=== PATIENT | male | born 1985 | race African-American/Black ===

== ENCOUNTER 2018-12-27 16:50 | Emergency (ER) | payer MEDICAID, OTHER ==
[~2018-12-27] VITALS: Ht 170.2 cm; Wt 79.4 kg
[2018-12-27 17:41] VITALS: BP 138/76
--- NOTE | 2018-12-27 17:43 | NUR ---
ED Nurse Note: pt walked in due to abd pain and n/v since yest am. pt unable to determne how mny time he vomited. pt is complaining of 6/1o pain on tthe epigastric area. will continue to monitor.
[2018-12-27] MEDS ORDERED: Metoclopramide 10mg/2ml Inj IVP ONE (18:00)
[2018-12-27 18:20] LABS: APPEARANCE,URINE CLEAR; BILIRUBIN, URINE NEGATIVE (NEGATIVE); GLUCOSE, URINE (UA) NEGATIVE (NEGATIVE); KETONES,URINE 4+ (NEGATIVE); LEUKOCYTE ESTERASE ,URINE 1+ (NEGATIVE); NITRITE,URINE NEGATIVE (NEGATIVE); PH,URINE 6 (4.5-8.0); PROTEIN,URINE 2+ (NEGATIVE); UROBILINOGEN,URINE NORMAL MG/DL (0.0-1.0)
[2018-12-27 18:22] LABS: BASOPHILS % (AUTO) 1.2 % (0.0-2.0); EOSINOPHILS % (AUTO) 0.1 % (0.0-3.0); HEMATOCRIT 47.1 % (42.0-52.0); HEMOGLOBIN 15.5 G/DL (14.2-18.0); LYMPHOCYTES % (AUTO) 8.5 % (20.0-45.0); MEAN CORPUSCULAR VOLUME 85 FL (80-99); MONOCYTES % (AUTO) 6.1 % (1.0-10.0); NEUTROPHILS % (AUTO) 84.2 % (45.0-75.0); PLATELET COUNT 267 K/UL (150-450); RED BLOOD COUNT 5.57 M/UL (4.70-6.10); RED CELL DISTRIBUTION WIDTH 12.3 % (11.6-14.8); WHITE BLOOD COUNT 15.2 K/UL (4.8-10.8)
[2018-12-27 18:27] LABS: COLOR,URINE YELLOW
[2018-12-27 18:29] LABS: INR 1.1 (0.9-1.1)
[2018-12-27 18:30] LABS: ANION GAP 13 mmol/L (5-15); BLOOD UREA NITROGEN 12 mg/dL (7-18); CARBON DIOXIDE 23 MMOL/L (21-32); CHLORIDE 103 MMOL/L (98-107); CREATININE 1.4 MG/DL (0.55-1.30); POTASSIUM 3.3 MMOL/L (3.5-5.1); SODIUM 139 MMOL/L (136-145)
[2018-12-27] MEDS ORDERED: Isovue-300 100ml vial INJ PRN (18:30)
[2018-12-27 18:40] LABS: ALANINE AMINOTRANSFERASE 28 U/L (12-78); ALBUMIN 4.3 G/DL (3.4-5.0); ALBUMIN/GLOBULIN RATIO 1.2 (1.0-2.7); ALKALINE PHOSPHATASE 65 U/L (46-116); ASPARTATE AMINO TRANSFERASE 14 U/L (15-37); BILIRUBIN,TOTAL 1.1 MG/DL (0.2-1.0)
[2018-12-27 18:45] LABS: BILIRUBIN,DIRECT 0.2 MG/DL (0.0-0.3)
--- NOTE | 2018-12-27 19:00 | NUR ---
ED Nurse Note: pt went to the ct with tech
--- NOTE | 2018-12-27 19:07 | NUR ---
HAND-OFF: Report given to fco tomlin.
--- NOTE | 2018-12-27 19:08 | NUR ---
ED Nurse Note: Received report from Ghazala/RN. Pt is a/o x 4. Pt was sent down to CT, will continue to monitor.
[2018-12-27] MEDS ORDERED: REGLAN10 MG ORAL (19:25)
[2018-12-27] MEDS ORDERED: FAMOTIDINE20 MG ORAL (19:25)
[2018-12-27] MEDS ORDERED: TYLENOL EXTRA500 MG ORAL (19:25)
[2018-12-27 19:40] VITALS: BP 134/72
--- NOTE | 2018-12-27 19:40 | NUR ---
ER DISCHARGE NOTE: Patient is cleared to be discharged per Cristina Rivas/NEEL. CT of abdominal done. Pt is A/O x4 on room air with stable vital signs. Pt was given D/C instructions and was able to verbalize understanding. Pt's ID band removed. Pt is able to ambulate with steady gait and took all belongings.
--- NOTE | 2018-12-27 21:05 | Emergency Room Report ---
History of Present Illness General Chief Complaint: Abdominal Pain Source: Patient Present Illness HPI The patient is a 33-year-old male presenting for abdominal pain. He states that this began one day prior. Pain is described as an 8 out of 10 dull ache primarily to the mid upper abdomen. Does not radiate. He does admit to nausea and loose stools. He also admits to chills but denies fever. He denies other symptoms including rash, SOB, CP, fatigue, hematemesis, melena, hematochezia Allergies: Coded Allergies: No Known Allergies (Unverified , 12/27/18) Patient History Past Medical History: see triage record Pertinent Family History: none Reviewed Nursing Documentation: PMH: Agreed; PSxH: Agreed Nursing Documentation-PMH Past Medical History: No Stated History Review of Systems All Other Systems: negative except mentioned in HPI Physical Exam Vital Signs Date Time Temp Pulse Resp B/P (MAP) Pulse Ox O2 Delivery O2 Flow Rate FiO2 12/27/18 16:56 98.4 83 20 138/76 99 Room Air Sp02 EP Interpretation: reviewed, normal General Appearance: no apparent distress, alert, GCS 15, non-toxic Head: normocephalic, atraumatic Respiratory: chest non-tender, lungs clear, normal breath sounds, speaking full sentences Gastrointestinal: normal bowel sounds, soft, non-distended, no guarding, no rebound, tenderness - epigastric Genitourinary: normal inspection, no CVA tenderness Musculoskeletal: back normal, gait/station normal, normal range of motion, non- tender, calf tenderness Neurologic: alert, oriented x3, responsive, motor strength/tone normal, sensory intact, speech normal Psychiatric: judgement/insight normal, memory normal, mood/affect normal, no suicidal/homicidal ideation Skin: normal color, no rash, warm/dry, well hydrated Medical Decision Making PA Attestation Dr. Garsia is my supervising physician. Patient management was discussed with my supervising physician Diagnostic Impression: Primary Impression: Gastroenteritis ER Course The patient is a 33-year-old male presenting for abdominal pain. Differential diagnoses considered but not limited to: Gastroenteritis, GERD, gastritis, appendicitis, pancreatitis PE: Vitals WNL. NAD. Abdomen: Normal appearance. Non distended. No ecchymosis. Increased BS. + Epigastric TTP. No McBurney point tenderness. No guarding. No CVA tenderness Labs: Leukocytosis of 15.1k Lipase unremarkable CT abdomen and pelvis shows no acute findings He is given IV fluids and reglan and states that symptoms have much improved He is given a prescription for Reglan and dietary information for symptomatic relief. He is told to take in plenty of fluids. ER precautions are given Laboratory Tests Test 12/27/18 18:00 White Blood Count 15.2 K/UL (4.8-10.8) H Red Blood Count 5.57 M/UL (4.70-6.10) Hemoglobin 15.5 G/DL (14.2-18.0) Hematocrit 47.1 % (42.0-52.0) Mean Corpuscular Volume 85 FL (80-99) Mean Corpuscular Hemoglobin 27.8 PG (27.0-31.0) Mean Corpuscular Hemoglobin Concent 32.8 G/DL (32.0-36.0) Red Cell Distribution Width 12.3 % (11.6-14.8) Platelet Count 267 K/UL (150-450) Mean Platelet Volume 6.1 FL (6.5-10.1) L Neutrophils (%) (Auto) 84.2 % (45.0-75.0) H Lymphocytes (%) (Auto) 8.5 % (20.0-45.0) L Monocytes (%) (Auto) 6.1 % (1.0-10.0) Eosinophils (%) (Auto) 0.1 % (0.0-3.0) Basophils (%) (Auto) 1.2 % (0.0-2.0) Prothrombin Time 11.7 SEC (9.30-11.50) H Prothrombin Time INR 1.1 (0.9-1.1) PTT 32 SEC (23-33) Urine Color Yellow Urine Appearance Clear Urine pH 6 (4.5-8.0) Urine Specific [place] 1.015 (1.005-1.035) Urine Protein 2+ (NEGATIVE) H Urine Glucose (UA) Negative (NEGATIVE) Urine Ketones 4+ (NEGATIVE) H Urine Blood Negative (NEGATIVE) Urine Nitrite Negative (NEGATIVE) Urine Bilirubin Negative (NEGATIVE) Urine Urobilinogen Normal MG/DL (0.0-1.0) Urine Leukocyte Esterase 1+ (NEGATIVE) H Urine RBC 0 /HPF (0 - 0) Urine WBC 0-2 /HPF (0 - 0) Urine Squamous Epithelial Cells Few /LPF (NONE/OCC) Urine Bacteria Occasional /HPF (NONE) Sodium Level 139 MMOL/L (136-145) Potassium Level 3.3 MMOL/L (3.5-5.1) L Chloride Level 103 MMOL/L (98-107) Carbon Dioxide Level 23 MMOL/L (21-32) Anion Gap 13 mmol/L (5-15) Blood Urea Nitrogen 12 mg/dL (7-18) Creatinine 1.4 MG/DL (0.55-1.30) H Estimate Glomerular Filtration Rate > 60 mL/min (>60) Glucose Level 105 MG/DL (74-106) Calcium Level 9.0 MG/DL (8.5-10.1) Total Bilirubin 1.1 MG/DL (0.2-1.0) H Direct Bilirubin 0.2 MG/DL (0.0-0.3) Aspartate Amino Transferase (AST) 14 U/L (15-37) L Alanine Aminotransferase (ALT) 28 U/L (12-78) Alkaline Phosphatase 65 U/L (46-116) Total Protein 8.0 G/DL (6.4-8.2) Albumin 4.3 G/DL (3.4-5.0) Globulin 3.7 g/dL Albumin/Globulin Ratio 1.2 (1.0-2.7) Lipase 158 U/L (73-393) Lab Results Impression Leukocytosis of 15.1k CT/MRI/US Diagnostic Results CT/MRI/US Diagnostic Results : Imaging Test Ordered: CT abd pelvis Impression unremarkable. No acute findings Last Vital Signs Date Time Temp Pulse Resp B/P (MAP) Pulse Ox O2 Delivery O2 Flow Rate FiO2 12/27/18 17:41 98.4 83 20 138/76 99 Room Air Status: improved Disposition: HOME, SELF-CARE Condition: Improved Scripts Acetaminophen* (TYLENOL EXTRA STRENGTH*) 500 Mg Tablet 500 MG ORAL Q8H PRN for Prn Headache/Temp > 101, #30 TAB 0 Refills Prov: TERZIAN,GIUSEPPE P.A. 12/27/18 Famotidine (FAMOTIDINE) 20 Mg Tablet 20 MG ORAL DAILY for 10 Days, #30 TAB 0 Refills Prov: TERZIAN,GIUSEPPE P.A. 4/14/19 Metoclopramide Hcl* (REGLAN*) 10 Mg Tablet 10 MG ORAL THREE TIMES A DAY, #15 TAB Prov: GIUSEPPE VALENTIN 12/27/18 Patient Instructions: Viral Gastroenteritis, Adult, Food Choices to Help Relieve Diarrhea, Adult, Abdominal Pain, Adult Additional Instructions: I discussed my findings with the patient. All questions and concerns have been answered. Treatment and medication compliance have been addressed. I advised the patient that they need to follow up with PMD in 3-5 days. Return to ED if symptoms worsen, new symptoms arise, or if needed for any reason. Patient verbalized understanding of discharge instructions. GIUSEPPE VALENTIN Dec 27, 2018 21:05
--- NOTE | 2018-12-28 08:47 | Diagnostic Imaging Report ---
Clinical Indication: Abdominal pain Technique: No oral contrast utilized, per emergency room physician request IV administration nonionic contrast. Venous phase spiral acquisition obtained through the abdomen and pelvis. Multiplanar reconstructions were generated. Total dose length product 593.34 mGycm. CTDIvol(s) 12.33 mGy. Dose reduction achieved using automated exposure control Comparison: none Findings: The appendix is normal. There is no evidence of diverticulosis or diverticulitis. No small bowel distention. No free or loculated intraperitoneal gas or fluid is evident. The distal esophagus, stomach, duodenum are unremarkable. The liver demonstrates multiple subcentimeter low-attenuation lesions which are too small to characterize. The gallbladder, bile ducts, pancreas, spleen, adrenals, kidneys are unremarkable. No pelvic mass or adenopathy. No retroperitoneal or mesenteric mass or adenopathy. The included lung bases are clear. The bones are unremarkable Impression: Essentially unremarkable exam Incidental finding of subcentimeter low-attenuation liver lesions, too small to characterize, most likely benign simple cysts or bile hamartomas. No further follow-up necessary This essentially agrees with the preliminary interpretation provided overnight by [facility] teleradiology service. The CT scanner at [facility] is accredited by the [employer] and the scans are performed using protocols designed to limit radiation exposure to as low as reasonably achievable to attain images of sufficient resolution adequate for diagnostic evaluation.
== END 2018-12-27 19:40 | disposition home or self-care (01) ==
LOC: EDSEX 16:50 → EMR 17:26
DX: K52.9 Noninfective gastroenteritis and colitis, unspecified (principal); D72.829 Elevated white blood cell count, unspecified
CPT/HCPCS: 36415; 74177; 80053; 81003; 82248; 83690; 85025; 85610; 85730; 96361; 96374; 99284; J2765; Q9967

== ENCOUNTER 2020-06-15 09:31 | Emergency (ER) | payer MEDICAID, OTHER ==
[~2020-06-15] VITALS: Ht 170.2 cm; Wt 72.6 kg
[~2020-06-15 09:31] MED LIST: DICYCLOMINE HCL10 MG ORAL; FAMOTIDINE20 MG ORAL; NKM; ONDANSETRON ODT4 MG BC; RANITIDINE HCL150 MG ORAL; REGLAN10 MG ORAL; TYLENOL EXTRA500 MG ORAL
[2020-06-15] MEDS ORDERED: Morphine Sulfate 4mg/ml Inj (IV USE ONLY) IVP ONE ×2 (09:45→11:15)
[2020-06-15 10:00] VITALS: BP 114/76
[2020-06-15 10:09] LABS: HEMATOCRIT 51.5 % (42.0-52.0); MEAN CORPUSCULAR VOLUME 84 FL (80-99); PLATELET COUNT 320 K/UL (150-450); RED BLOOD COUNT 6.13 M/UL (4.70-6.10); RED CELL DISTRIBUTION WIDTH 12.1 % (11.6-14.8); WHITE BLOOD COUNT 20.9 K/UL (4.8-10.8)
[2020-06-15] MEDS ORDERED: Isovue-300 100ml vial INJ PRN (10:30)
--- NOTE | 2020-06-15 10:31 | Emergency Room Report ---
History of Present Illness General Chief Complaint: Abdominal Pain Source: Patient Present Illness HPI Patient presents emergency department today complaining of cute onset abdominal pain since yesterday evening. The pain is worse in the epigastrium associate nausea vomiting and diarrhea today. He states that the pain is nonradiating. Denies any fever chest pain shortness of breath. Patient does not remember if he ate anything that was undercooked or that could have caused this. No other complaints are noted. He is only one sick with this that he knows. Symptoms noted to be moderate to severe. Patient denies any runny nose cough sore throat or any coronavirus symptoms. Symptoms noted to be moderate to severe. No other modifying factors. No other associated signs and symptoms. No other complaints were noted. Allergies: Coded Allergies: No Known Allergies (Unverified , 12/27/18) COVID-19 Screening Contact w/high risk pt: No Experienced COVID-19 symptoms?: No COVID-19 Testing performed VENEER STOCK GRADER: No Patient History Past Medical History: none Past Surgical History: none Pertinent Family History: none Social History: Denies: smoking, alcohol use, drug use Reviewed Nursing Documentation: PMH: Agreed; PSxH: Agreed Nursing Documentation-PMH Past Medical History: No Stated History Review of Systems All Other Systems: negative except mentioned in HPI Physical Exam Vital Signs Date Time Temp Pulse Resp B/P (MAP) Pulse Ox O2 Delivery O2 Flow Rate FiO2 06/15/20 09:36 98.8 69 18 110/64 (79) 100 Room Air Sp02 EP Interpretation: reviewed, normal General Appearance: normal inspection, well appearing, no apparent distress, alert Head: atraumatic Eyes: bilateral eye normal inspection ENT: normal ENT inspection, hearing grossly normal, normal voice Neck: normal inspection, full range of motion, supple, no bony tend Respiratory: normal inspection, lungs clear, normal breath sounds, no respiratory distress, no retraction, no wheezing Cardiovascular #1: regular rate, rhythm, no edema Gastrointestinal: normal inspection, normal bowel sounds, non tender, soft, no guarding, no hernia Genitourinary: no CVA tenderness Musculoskeletal: normal inspection, back normal, normal range of motion Neurologic: alert, responsive, speech normal, normal inspection Psychiatric: normal inspection, judgement/insight normal, mood/affect normal Medical Decision Making Diagnostic Impression: Primary Impression: Gastroenteritis Additional Impressions: Abdominal pain Leukocytosis ER Course Patient presents to the emergency department today complaining of abdominal pain. Differential considerations include acute pancreatitis, cholecystitis, gastritis, hepatitis, appendicitis just to name a few. Given the severity of the patient's presentation I felt this is a highly complex patient. This patient required extensive workup. Patient's laboratory work-up shows an elevated white blood cell count. However there is no evidence of any bands. Because of patient's pain and elevated white blood cell count CT scan was performed. Patient's creatinine was slightly elevated therefore patient only had a CT without contrast. CT without contrast was noted to be negative. Patient was given 2 L fluid bolus morphine and feels much better after receiving medications. Reassess patient felt back to baseline. Patient declined to be admitted for observation I felt was reasonable given that he is back to baseline leukocytosis could have been stress-induced. Recommend patient take Pepto-Bismol Zofran for nausea as needed. Patient is advised to follow up with primary doctor in 2-3 days and return the emergency room for any worsening symptoms and as needed. Labs Test 06/15/20 09:55 06/15/20 10:21 06/15/20 11:53 White Blood Count 20.9 K/UL (4.8-10.8) Red Blood Count 6.13 M/UL (4.70-6.10) Hemoglobin 17.0 G/DL (14.2-18.0) Hematocrit 51.5 % (42.0-52.0) Mean Corpuscular Volume 84 FL (80-99) Mean Corpuscular Hemoglobin 27.8 PG (27.0-31.0) Mean Corpuscular Hemoglobin Concent 33.1 G/DL (32.0-36.0) Red Cell Distribution Width 12.1 % (11.6-14.8) Platelet Count 320 K/UL (150-450) Mean Platelet Volume 6.2 FL (6.5-10.1) Neutrophils (%) (Auto) % (45.0-75.0) Lymphocytes (%) (Auto) % (20.0-45.0) Monocytes (%) (Auto) % (1.0-10.0) Eosinophils (%) (Auto) % (0.0-3.0) Basophils (%) (Auto) % (0.0-2.0) Differential Total Cells Counted 100 Neutrophils % (Manual) 91 % (45-75) Lymphocytes % (Manual) 4 % (20-45) Monocytes % (Manual) 4 % (1-10) Eosinophils % (Manual) 0 % (0-3) Basophils % (Manual) 1 % (0-2) Band Neutrophils 0 % (0-8) Platelet Estimate Adequate Platelet Morphology Normal Red Blood Cell Morphology Normal Sodium Level 137 MMOL/L (136-145) Potassium Level 3.9 MMOL/L (3.5-5.1) Chloride Level 103 MMOL/L (98-107) Carbon Dioxide Level 22 MMOL/L (21-32) Anion Gap 12 mmol/L (5-15) Blood Urea Nitrogen 12 mg/dL (7-18) Creatinine 1.5 MG/DL (0.55-1.30) Estimat Glomerular Filtration Rate > 60 mL/min (>60) Glucose Level 139 MG/DL (74-106) Calcium Level 9.6 MG/DL (8.5-10.1) Total Bilirubin 0.7 MG/DL (0.2-1.0) Aspartate Amino Transf (AST/SGOT) 22 U/L (15-37) Alanine Aminotransferase (ALT/SGPT) 18 U/L (12-78) Alkaline Phosphatase 64 U/L (46-116) Total Protein 7.1 G/DL (6.4-8.2) Albumin 4.1 G/DL (3.4-5.0) Globulin 3.0 g/dL Lipase 69 U/L (73-393) Urine Color Yellow Urine Appearance Clear Urine pH 8 (4.5-8.0) Urine Specific [place] 1.015 (1.005-1.035) Urine Protein 2+ (NEGATIVE) Urine Glucose (UA) Negative (NEGATIVE) Urine Ketones 2+ (NEGATIVE) Urine Blood Negative (NEGATIVE) Urine Nitrite Negative (NEGATIVE) Urine Bilirubin Negative (NEGATIVE) Urine Urobilinogen Normal MG/DL (0.0-1.0) Urine Leukocyte Esterase Negative (NEGATIVE) Urine RBC 0 /HPF (0 - 0) Urine WBC 0-2 /HPF (0 - 0) Urine Squamous Epithelial Cells Occasional /LPF Urine Bacteria Occasional /HPF (NONE) EKG Diagnostic Results Rate: normal Rhythm: NSR ST Segments: no acute changes Rhythm Strip Diag. Results EP Interpretation: yes Rate: 99 Rhythm: NSR, no PVC's, no ectopy CT/MRI/US Diagnostic Results CT/MRI/US Diagnostic Results : Imaging Test Ordered: CT abdomen pelvis: Negative Last Vital Signs Date Time Temp Pulse Resp B/P (MAP) Pulse Ox O2 Delivery O2 Flow Rate FiO2 06/15/20 09:36 98.8 69 18 110/64 (79) 100 Room Air Status: improved Disposition: HOME, SELF-CARE Condition: Stable Scripts Ondansetron (Zofran) 4 Mg Tablet 4 MG ORAL Q6H PRN for Nausea & Vomiting, #10 TAB 0 Refills Prov: Alex Hillman MD 06/15/20 [facility] Alex Hillman MD Jun 15, 2020 10:31
[2020-06-15 11:12] LABS: ANION GAP 12 mmol/L (5-15); ASPARTATE AMINO TRANSFERASE 22 U/L (15-37); CALCIUM 9.6 MG/DL (8.5-10.1); CARBON DIOXIDE 22 MMOL/L (21-32); CHLORIDE 103 MMOL/L (98-107); CREATININE 1.5 MG/DL (0.55-1.30); POTASSIUM 3.9 MMOL/L (3.5-5.1); SODIUM 137 MMOL/L (136-145)
[2020-06-15 11:29] LABS: ALBUMIN 4.1 G/DL (3.4-5.0); ALKALINE PHOSPHATASE 64 U/L (46-116); BILIRUBIN,TOTAL 0.7 MG/DL (0.2-1.0)
[2020-06-15 12:03] VITALS: BP 118/77
[2020-06-15 12:16] LABS: ALANINE AMINOTRANSFERASE 18 U/L (12-78); BLOOD UREA NITROGEN 12 mg/dL (7-18)
[2020-06-15 12:49] LABS: APPEARANCE,URINE CLEAR; BILIRUBIN, URINE NEGATIVE (NEGATIVE); GLUCOSE, URINE (UA) NEGATIVE (NEGATIVE); KETONES,URINE 2+ (NEGATIVE); LEUKOCYTE ESTERASE ,URINE NEGATIVE (NEGATIVE); NITRITE,URINE NEGATIVE (NEGATIVE); PH,URINE 8 (4.5-8.0); PROTEIN,URINE 2+ (NEGATIVE); UROBILINOGEN,URINE NORMAL MG/DL (0.0-1.0)
--- NOTE | 2020-06-15 12:56 | Diagnostic Imaging Report ---
Indication: Abdominal pain Technique: Spiral acquisitions obtained through the abdomen and pelvis. No oral contrast utilized, per emergency room physician request No IV contrast utilized, per emergency room physician request.. Multiplanar reconstructions were generated. Total dose length product 221 mGycm. CTDIvol(s) 4 mGy. Dose reduction achieved using automated exposure control Comparison: For 2018 Findings: Lack of enteric contrast limits assessment of the GI tract. The appendix is normal. No evidence of diverticulosis or diverticulitis. No small bowel distention. No free or loculated intraperitoneal gas or fluid is evident. The distal esophagus, stomach are unremarkable. A dense object, probably an ingested tablet, seen in the duodenum. There is minimal distention of the duodenum without evidence of downstream obstructive lesion, probably functional. Lack of IV contrast limits assessment of the solid organs. The liver demonstrates one or more subcentimeter low-attenuation lesions, less apparent than on previous contrast infused exam but grossly unchanged., gallbladder, bile ducts, pancreas, spleen, adrenals, kidneys are unremarkable. No retroperitoneal or mesenteric mass or adenopathy. No pelvic mass or adenopathy. The included lung bases are clear. The bones are unremarkable. No significant interim change Impression: Limited assessment of the GI tract, due to lack of enteric contrast administration No acute or significant abnormality demonstrated Probable small liver cysts or bile hamartomas. The CT scanner at [facility] is accredited by the [employer] and the scans are performed using protocols designed to limit radiation exposure to as low as reasonably achievable to attain images of sufficient resolution adequate for diagnostic evaluation.
[2020-06-15 13:00] LABS: COLOR,URINE YELLOW
[2020-06-15] MEDS ORDERED: ZOFRAN4 MG ORAL (13:18)
[2020-06-15 13:24] VITALS: BP 126/79
== END 2020-06-15 13:26 | disposition home or self-care (01) ==
LOC: EMR 09:53
DX: K52.9 Noninfective gastroenteritis and colitis, unspecified (principal); D72.829 Elevated white blood cell count, unspecified; R10.9 Unspecified abdominal pain
CPT/HCPCS: 36415; 74176; 80053; 81003; 83690; 85007; 85025; 96361; 96374; 96375; 96376; J2270; J2405; J7030; Z7502; 99284

== ENCOUNTER 2020-06-17 03:02 | Emergency (ER) | payer OTHER ==
[~2020-06-17] VITALS: Ht 170.2 cm; Wt 72.6 kg
[~2020-06-17 03:02] MED LIST changes: +ZOFRAN4 MG ORAL
[2020-06-17 03:10] VITALS: BP 131/66
[2020-06-17] MEDS ORDERED: Pantoprazole Inj IV ONE (03:15)
--- NOTE | 2020-06-17 03:25 | Emergency Room Report ---
History of Present Illness General Chief Complaint: Abdominal Pain Source: Patient Present Illness HPI 34-year-old -Swedish male presents with abdominal cramping on and off for 2 days. Patient suspects that he at something bad but cannot recall what. Last PO intake was this morning. Last BM was prior to arrival. Patient states he smokes marijuana. Last use was yesterday, and he states marijuana use seems to flare his pain. Todays abdominal pain is associated with nausea, vomiting, and nonbloody diarrhea. Denies fever chills cough sob CP recent travel or sick contacts. He states he has felt similar to this episode in the past, however cannot recall w hat the cause was. The patient's symptoms were gradual onset, severity was moderate, duration since 1-2 days. Quality: aching Past medical history: denies Past surgical history: denies Smoking: Denies Alcohol use: ++occasional Drug use: ++marijuana Review of systems: CONST: No fevers or chills, No night sweats PULMONARY: No productive cough, No shortness of breath CARDIAC: No chest pain, No palpitations GI: ++ vomiting, ++ diarrhea , No melena_or_BRBPR : No dysuria, No hematuria, No discharge NEURO: No new_focal_weakness_or_numbness, No confusion, No vision changes 14 point Review of Systems is otherwise negative except per HPI Physical Exam: GENERAL: Awake_alert_ nontoxic, no acute distress Spo2 98% on RA -normal EYES: Extraocular muscles are intact. Conjunctivae clear. Lids without swelling ENT: External nose and ear normal_in_appearance. Oropharynx clear. Hea d_atraumatic, Moist_oral_mucosa NECK: No JVD. No meningismus. No thyromegaly. Supple. Trachea midline RESP: Normal respiratory effort. Symmetric rise. No stridor. Clear_to_auscultation_No_rales_No_wheezes CARDIAC: Tachy and regular rhytm. No_significant pedal edema. ABDOMEN: Soft. Nondistended. Nontender_No_rebound_or_guarding. Neg sims, neg obturator, neg rosving sign. MSK: Normal muscle tone, without rigidity. Extremities without asymmetric deformity or swelling. SKIN: Warm and dry. No visible cyanosis or pallor NEUROLOGIC: Alert, oriented x3. Motor_and_sensation_grossly_intact. No truncal ataxia. Gait_normal Psych: Normal mood and affect, normal judgment and insight - COORDINATION OF CARE Case was discussed with: Patient Any labs and imaging that were ordered were interpreted as part of the medical decision making: I did review previous ER visit from 06/15/2020. CT scan was unremarkable. Incidentally found liver nodules, however no acute surgical pathology. Medical Decision Making/Plan: Differential diagnosis includes gastroenteritis vs gastritis vs PUD vs UTI, pancreatitis, atypical appendicitis, gastroparesis, gastritis, peptic ulcer disease DOUBT cholecystitis, choledocholithiasis, hepatitis, small bowel obstruction, volvulus, AAA Patient was initially tachycardic, but this resolved after IVFs and anti-emetic. Abdominal examination is soft, non-peritoneal with no guarding or rebound. No indication for repeat CT scan as last one done 06/15 was normal. Pt self endorsed marijuana use. UDS is positive for marijuana. Given hx of marijuana use, patient was given haldol with good effect. UA from 2 days ago is negative for infection. Labs show downtrending leukocytosis, down from 20 a few days ago. No significant acidosis or metabolic abnormality. The patients current symptoms and exam do not appear to be from an emergent process or condition requiring immediate surgery. Patient was instructed of his incidental findings of a liver cyst on CT that will need repeat imaging within 3 months. The patients symptoms significantly improved, exam upon discharge revealed a benign abdomen without any surgical or peritoneal signs , and tolerating PO I have instructed him to stop smoking marijuana as this is likely 1 of the con tributing factors to his cyclic vomiting. The patient appears stable for discharge with abdominal_recheck_in_24_hours, and understand to return to the ED immediately if symptoms change or worsen. Allergies: Coded Allergies: No Known Allergies (Unverified , 12/27/18) COVID-19 Screening Contact w/high risk pt: No Experienced COVID-19 symptoms?: No COVID-19 Testing performed CABLE COVERER: No Nursing Documentation-[facility] Past Medical History: No Stated History Physical Exam Vital Signs Date Time Temp Pulse Resp B/P (MAP) Pulse Ox O2 Delivery O2 Flow Rate FiO2 06/17/20 03:05 97.7 102 22 124/64 (84) 99 Room Air Sp02 EP Interpretation: reviewed, normal Medical Decision Making Diagnostic Impression: Primary Impression: Abdominal pain Additional Impressions: Gastroenteritis Nausea & vomiting Marijuana use Hypokalemia Liver cyst Cyclic vomiting syndrome Last Vital Signs Date Time Temp Pulse Resp B/P (MAP) Pulse Ox O2 Delivery O2 Flow Rate FiO2 06/17/20 03:05 97.7 102 22 124/64 (84) 99 Room Air Disposition: HOME, SELF-CARE Admit Decision Time: 04:20 Condition: Stable Scripts Simethicone (SIMETHICONE) 180 Mg Capsule 180 MG PO DAILY for 20 Days, #20 CAP Prov: Kate Alatorre D.O. 06/17/20 Ondansetron Odt* (ZOFRAN ODT*) 4 Mg Tab.rapdis 4 MG BC EVERY 8 HOURS, #10 TAB 0 Refills Prov: Kate Alatorre D.O. 06/17/20 Ranitidine Hcl* (ZANTAC) 150 Mg Tablet 150 MG ORAL TWICE A DAY for Gerd for 10 Days, #20 TAB Prov: Kate Alatorre D.O. 06/17/20 Referrals: [facility],REFERRING (PCP) Patient Instructions: Abdominal Pain, Adult, Nausea and Vomiting, Adult, [id number], Viral Gastroenteritis, Adult, [id number] Additional Instructions: Instructions for patient/body repairer: Follow up with your physician in 1-2 days. Stop smoking marijuana as it can contribute to your abdominal pain Follow-up with your doctor sooner if your condition requires a more timely clinical reevaluation. Return to the emergency department immediately if you feel that your condition is worsening or if you have any new or concerning symptoms. Review your discharge instructions and take any prescriptions given as instructed. You were found to have an abnormality on your imaging (liver cysts) which will need to be reimaged in approximately 3 months. Cancer or malignancy is one of the possibilities so it needs to be monitored to ensure that it is not changing. It is important that you see a primary doctor to be referred for this imaging. Failure to do so could lead to undetected worsening cancer or illness. [facility] PROVIDES FREE OR LOW-COST HEALTH SERVICES TO PEOPLE WHO CAN SHOW PROOF THAT THEY LIVE IN [facility]. TO FIND MORE CLINICS PARTNERED WITH THE [facility] TO PROVIDE SERVICE, PLEASE CALL . Kate Alatorre D.O. Jun 17, 2020 03:25
[2020-06-17 03:36] LABS: BASOPHILS % (AUTO) 1.8 % (0.0-2.0); EOSINOPHILS % (AUTO) 1.4 % (0.0-3.0); HEMATOCRIT 45.9 % (42.0-52.0); HEMOGLOBIN 15.4 G/DL (14.2-18.0); LYMPHOCYTES % (AUTO) 12.1 % (20.0-45.0); MEAN CORPUSCULAR VOLUME 84 FL (80-99); MONOCYTES % (AUTO) 5.5 % (1.0-10.0); NEUTROPHILS % (AUTO) 79.2 % (45.0-75.0); PLATELET COUNT 264 K/UL (150-450); WHITE BLOOD COUNT 15.1 K/UL (4.8-10.8)
[2020-06-17 03:41] LABS: ANION GAP 13 mmol/L (5-15); BLOOD UREA NITROGEN 12 mg/dL (7-18); CARBON DIOXIDE 22 MMOL/L (21-32); CHLORIDE 105 MMOL/L (98-107); CREATININE 1.4 MG/DL (0.55-1.30); POTASSIUM 3.2 MMOL/L (3.5-5.1); SODIUM 140 MMOL/L (136-145)
[2020-06-17 03:46] LABS: ALANINE AMINOTRANSFERASE 20 U/L (12-78); ALBUMIN 4.1 G/DL (3.4-5.0); ALBUMIN/GLOBULIN RATIO 1.2 (1.0-2.7); ALKALINE PHOSPHATASE 60 U/L (46-116); ASPARTATE AMINO TRANSFERASE 15 U/L (15-37); BILIRUBIN,TOTAL 0.6 MG/DL (0.2-1.0)
[2020-06-17] MEDS ORDERED: Haloperidol Decanoate (Long Acting) 50mg Inj IM ONE (04:00)
[2020-06-17] MEDS ORDERED: Haloperidol 5mg/ml Inj IM ONE (04:00)
[2020-06-17] MEDS ORDERED: RANITIDINE HCL150 MG ORAL (04:22)
[2020-06-17] MEDS ORDERED: ONDANSETRON ODT4 MG BC (04:22)
[2020-06-17] MEDS ORDERED: SIMETHICONE180 MG PO (04:22)
[2020-06-17] MEDS ORDERED: Metoclopramide 10mg/2ml Inj IVP ONE (04:45)
[2020-06-17] MEDS ORDERED: DiphenhydrAMINE 50mg/ml Inj IVP ONE (04:45)
[2020-06-17] MEDS ORDERED: Morphine Sulfate 4mg/ml Inj (IV USE ONLY) IVP ONE (05:00)
[2020-06-17 05:26] LABS: APPEARANCE,URINE CLEAR; BILIRUBIN, URINE NEGATIVE (NEGATIVE); COLOR,URINE YELLOW; GLUCOSE, URINE (UA) NEGATIVE (NEGATIVE); KETONES,URINE 4+ (NEGATIVE); LEUKOCYTE ESTERASE ,URINE NEGATIVE (NEGATIVE); NITRITE,URINE NEGATIVE (NEGATIVE); PH,URINE 7 (4.5-8.0); UROBILINOGEN,URINE NORMAL MG/DL (0.0-1.0)
[2020-06-17 05:27] LABS: PROTEIN,URINE NEGATIVE (NEGATIVE)
[2020-06-17 06:24] VITALS: BP 135/67
== END 2020-06-17 06:23 | disposition home or self-care (01) ==
LOC: EMR 03:08
DX: K52.9 Noninfective gastroenteritis and colitis, unspecified (principal); R11.2 Nausea with vomiting, unspecified; F12.90 Cannabis use, unspecified, uncomplicated; E87.6 Hypokalemia; K76.89 Other specified diseases of liver; R11.15 Cyclical vomiting syndrome unrelated to migraine; D72.829 Elevated white blood cell count, unspecified
CPT/HCPCS: 36415; 80053; 80307; 81001; 83690; 84484; 85025; 85610; 85730; 96361; 96372; 96374; 96375; J1200; J1630; J1631; J2270; J2405; J2765; J7030; S0164; Z7502; 99284

== ENCOUNTER 2020-10-10 10:22 | Emergency (ER) | payer OTHER ==
[~2020-10-10] VITALS: Ht 170.2 cm; Wt 79.4 kg
[~2020-10-10 10:22] MED LIST changes: +SIMETHICONE180 MG PO
[2020-10-10] MEDS ORDERED: Dicyclomine HCl 10mg/5ml oral soln ORAL ONE (10:45)
[2020-10-10] MEDS ORDERED: Mylanta II UD 30ml ORAL ONE (10:45)
[2020-10-10] MEDS ORDERED: Lidocaine 2% Visc 15ml soln ORAL ONE (10:45)
--- NOTE | 2020-10-10 10:50 | Emergency Room Report ---
History of Present Illness General Chief Complaint: Abdominal Pain Source: Patient Present Illness HPI 34-year-old male here with epigastric abdominal pain and vomiting. Patient says he awoke with the symptoms. Has vomited several times nonbilious nonbloody. Pain is sharp in nature, located in the epigastric region, does not otherwise radiate. No fevers, chills, chest pain, palpitation, shortness of breath, back pain, diarrhea, dysuria. Patient has a history of cannabinoid hyperemesis syndrome. He admits to still smoking a heavy amount of marijuana daily. Denies alcohol or other drug use. 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 Nursing Documentation-[facility] Past Medical History: No Stated History Review of Systems All Other Systems: negative except mentioned in HPI Physical Exam Vital Signs Date Time Temp Pulse Resp B/P (MAP) Pulse Ox O2 Delivery O2 Flow Rate FiO2 10/10/20 10:38 98.2 62 16 127/70 (89) 98 Room Air Sp02 EP Interpretation: reviewed, normal General Appearance: no apparent distress, alert, GCS 15, non-toxic Head: normocephalic, atraumatic Eyes: bilateral eye normal inspection, bilateral eye PERRL ENT: hearing grossly normal, normal pharynx, no angioedema, normal voice Neck: full range of motion, supple/symm/no masses Respiratory: chest non-tender, lungs clear, normal breath sounds, speaking full sentences Cardiovascular #1: regular rate, rhythm, no edema Cardiovascular #2: 2+ carotid (R), 2+ carotid (L), 2+ radial (R), 2+ radial (L), 2+ dorsalis pedis (R), 2+ dorsalis pedis (L) Gastrointestinal: normal bowel sounds, soft, non-distended, no guarding, no rebound, other - Epigastric tenderness on palpation. No rebound or guarding. No distention. No peritoneal signs Rectal: deferred Genitourinary: normal inspection, no CVA tenderness Musculoskeletal: back normal, normal range of motion, gait/station normal, non- tender Neurologic: alert, motor strength/tone normal, oriented x3, sensory intact, responsive, speech normal Psychiatric: judgement/insight normal, memory normal, mood/affect normal, no suicidal/homicidal ideation Lymphatic: no adenopathy Medical Decision Making Diagnostic Impression: Primary Impression: Abdominal pain Additional Impression: Marijuana use ER Course ddx: Hernia, bladder or kidney stones, diverticulitis, enteritis, appendicitis, genital pathology Laboratory Tests Test 10/10/20 10:46 White Blood Count 18.7 K/UL (4.8-10.8) H Red Blood Count 5.88 M/UL (4.70-6.10) Hemoglobin 16.3 G/DL (14.2-18.0) Hematocrit 52.2 % (42.0-52.0) H Mean Corpuscular Volume 89 FL (80-99) Mean Corpuscular Hemoglobin 27.8 PG (27.0-31.0) Mean Corpuscular Hemoglobin Concent 31.3 G/DL (32.0-36.0) L Red Cell Distribution Width 13.3 % (11.6-14.8) Platelet Count 287 K/UL (150-450) Mean Platelet Volume 6.9 FL (6.5-10.1) Neutrophils (%) (Auto) 91.8 % (45.0-75.0) H Lymphocytes (%) (Auto) 4.5 % (20.0-45.0) L Monocytes (%) (Auto) 3.0 % (1.0-10.0) Eosinophils (%) (Auto) 0.0 % (0.0-3.0) Basophils (%) (Auto) 0.6 % (0.0-2.0) Sodium Level 139 MMOL/L (136-145) Potassium Level 3.8 MMOL/L (3.5-5.1) Chloride Level 103 MMOL/L (98-107) Carbon Dioxide Level 25 MMOL/L (21-32) Anion Gap 11 mmol/L (5-15) Blood Urea Nitrogen 11 mg/dL (7-18) Creatinine 1.5 MG/DL (0.55-1.30) H Estimated Glomerular Filtration Rate > 60 mL/min (>60) Glucose Level 151 MG/DL (74-106) H Calcium Level 9.4 MG/DL (8.5-10.1) Total Bilirubin 0.6 MG/DL (0.2-1.0) Aspartate Amino Transferase (AST) 9 U/L (15-37) L Alanine Aminotransferase (ALT) 16 U/L (12-78) Alkaline Phosphatase 69 U/L (46-116) Total Protein 8.2 G/DL (6.4-8.2) Albumin 4.3 G/DL (3.4-5.0) Globulin 3.9 g/dL Albumin/Globulin Ratio 1.1 (1.0-2.7) Lipase 103 U/L (73-393) 4-year-old male with history of cannabinoid hyperemesis syndrome here with abdominal pain and vomiting. The patient never had any episodes of emesis here in the emergency department. He had a largely benign physical examination. CBC revealed a leukocytosis of 18,000, but review of patient's past laboratory work shows that he persistently has a leukocytosis of 15,000-20,000. Vital signs within normal limits. Afebrile. CMP unremarkable and lipase negative. Was given 1 L IV normal saline, 5 mg intramuscular Haldol. He felt some improvement but was requesting morphine. He was given 4 mg morphine and said that he felt much improved. He admitted to smoking heavy amount of marijuana still despite having been to this emergency department for cannabinoid hyperemesis syndrome in the past. He was told once again that he needs to refrain from using any drugs or alcohol and to refrain from smoking marijuana. Was given prescription for Bentyl, Zofran, Pepcid. Told to follow-up with primary care. Discharged in stable condition. Last Vital Signs Date Time Temp Pulse Resp B/P (MAP) Pulse Ox O2 Delivery O2 Flow Rate FiO2 10/10/20 10:38 98.2 62 16 127/70 (89) 98 Room Air Scripts Famotidine* (Pepcid 20mg tablet*) 20 Mg Tablet 20 MG ORAL DAILY for Gerd, #30 TAB 0 Refills Prov: Chetan Benitez M.D. 10/10/20 Ondansetron Odt* (ZOFRAN ODT*) 8 Mg Tab.rapdis 8 MG ORAL Q6H PRN for Nausea & Vomiting, #12 TAB Prov: Chetan Benitez M.D. 10/10/20 Dicyclomine Hcl* (DICYCLOMINE HCL*) 10 Mg Capsule 10 MG ORAL TID, #10 CAP Prov: Chetan Benitez M.D. 10/10/20 Chetan Benitez M.D. Oct 10, 2020 10:50
--- NOTE | 2020-10-10 10:58 | NUR ---
ED Nurse Note: Pt walked into ED from home for lower L abdominal pain since this morning. Pt states he has vomited more than 8 times today. He denies diarrhea, bodyaches, chills, fever. Pt is alert and orientedx4, ambulatory. He is set up on monitor. IV established. Blood drawn and sent.
[2020-10-10] MEDS ORDERED: Haloperidol 5mg/ml Inj IM ONE (11:00)
[2020-10-10 11:01] VITALS: BP 125/72
[2020-10-10 11:11] LABS: HEMATOCRIT 52.2 % (42.0-52.0); HEMOGLOBIN 16.3 G/DL (14.2-18.0); MEAN CORPUSCULAR VOLUME 89 FL (80-99); PLATELET COUNT 287 K/UL (150-450); RED BLOOD COUNT 5.88 M/UL (4.70-6.10); RED CELL DISTRIBUTION WIDTH 13.3 % (11.6-14.8); WHITE BLOOD COUNT 18.7 K/UL (4.8-10.8)
[2020-10-10 11:12] LABS: BASOPHILS % (AUTO) 0.6 % (0.0-2.0); LYMPHOCYTES % (AUTO) 4.5 % (20.0-45.0); NEUTROPHILS % (AUTO) 91.8 % (45.0-75.0)
[2020-10-10 11:18] LABS: ANION GAP 11 mmol/L (5-15); BLOOD UREA NITROGEN 11 mg/dL (7-18); CALCIUM 9.4 MG/DL (8.5-10.1); CARBON DIOXIDE 25 MMOL/L (21-32); CHLORIDE 103 MMOL/L (98-107); CREATININE 1.5 MG/DL (0.55-1.30); POTASSIUM 3.8 MMOL/L (3.5-5.1); SODIUM 139 MMOL/L (136-145)
[2020-10-10 11:23] LABS: ALANINE AMINOTRANSFERASE 16 U/L (12-78); ALBUMIN 4.3 G/DL (3.4-5.0); ALBUMIN/GLOBULIN RATIO 1.1 (1.0-2.7); ALKALINE PHOSPHATASE 69 U/L (46-116); ASPARTATE AMINO TRANSFERASE 9 U/L (15-37); BILIRUBIN,TOTAL 0.6 MG/DL (0.2-1.0)
[2020-10-10] MEDS ORDERED: FAMOTIDINE20 MG ORAL (11:29)
[2020-10-10] MEDS ORDERED: ZOFRAN ODT8 MG ORAL (11:29)
[2020-10-10] MEDS ORDERED: DICYCLOMINE HCL10 MG ORAL (11:29)
--- NOTE | 2020-10-10 11:37 | NUR ---
ED Nurse Note: XENIAD notified pt refusing to provide urine now.
[2020-10-10] MEDS ORDERED: Morphine Sulfate 4mg/ml Inj (IV USE ONLY) IVP ONE (11:45)
--- NOTE | 2020-10-10 12:15 | NUR ---
ED Nurse Note: Pt cleared by health care Provider for discharge. D/C instructions and prescription given per MD order, pt verbalized understanding. Questions and concerns were addressed. D/C IV, catheter tip intact, bleeding controlled. Pt AAOX4, VSS, no signs of distress noted, pt denies pain or sob. Per pt, he will be picked up by family member/friend. Pt ambulated out of the unit with steady gait and left with all belongings. ID band removed.
[2020-10-10 12:19] VITALS: BP 126/72
== END 2020-10-10 12:45 | disposition home or self-care (01) ==
LOC: EMR 11:00
DX: R10.13 Epigastric pain (principal); F12.90 Cannabis use, unspecified, uncomplicated
CPT/HCPCS: 80053; 83690; 85025; 96361; 96372; 96374; 96375; J1630; J2270; J2405; J7030; Z7502; 99284